=== PATIENT | female | born 1995 | race American Indian/Alaskan Native ===

== ENCOUNTER 2020-06-10 16:21 | Emergency (ER) | payer SELFPAY ==
[2020-06-10 17:31] LABS: Basophils % (Auto) 0.5 % (0.0-1.8); Eosinophils # (Auto) 0.1 K/mm3 (0.0-0.4); Eosinophils % (Auto) 1.8 % (0.0-4.3); Hemoglobin 12.3 gm/dl (10.1-14.3); Lymphocytes % (Auto) 25.6 % (13.4-35.0); Mean Corpuscular HGB Conc 33 % (30-34); Mean Corpuscular Volume 72 fl (79-97); Monocytes # (Auto) 0.6 K/mm3 (0.0-0.8); Monocytes % (Auto) 7.7 % (0.0-7.3); Platelet Count 271 K/mm3 (140-440); Red Cell Distribution Width 15.1 % (13.2-15.2)
[2020-06-10 18:04] LABS: Bilirubin,Urine NEG (Negative); Blood,Urine SM (Negative); Color,Urine Yellow (Yellow); Protein,Urine <15 mg/dL mg/dL (Negative); Urobilinogen,Urine < 2.0 mg/dL (<2.0)
[2020-06-10 18:49] VITALS: BP 103/66
--- NOTE | 2020-06-10 20:03 | Emergency Department Report ---
ED Female HPI - General Chief complaint: Vaginal Bleeding Stated complaint: ABD PAIN Source: patient Mode of arrival: Ambulatory Limitations: No Limitations - History of Present Illness Initial comments: Patient 25-year-old -[place] female who presents for pelvic pain times x1 week. Patient denies vaginal discharge no concern for STI, no dysuria frequency or urgency. Patient does endorse abnormal menses for past month. Patient denies control. Patient states attempting to get . There is been no fever, chills, nausea or vomiting. There are no other exacerbating or relieving factors. MD Complaint: vaginal bleeding - Related Data Previous Rx's Medication Instructions Recorded Last Taken Type Nitrofurantoin Daggett/M-Cryst 100 mg PO BID 7 Days #14 capsule 06/10/20 Unknown Rx [Macrobid CAP] Allergies Allergy/AdvReac Type Severity Reaction Status Date / Time No Known Allergies Allergy Verified 06/10/20 16:57 ED Review of Systems ROS: Stated complaint: ABD PAIN Other details as noted in HPI Constitutional: denies: chills, fever Eyes: denies: eye pain, eye discharge, vision change ENT: denies: ear pain, throat pain Respiratory: denies: cough, shortness of breath, wheezing Cardiovascular: denies: chest pain, palpitations Endocrine: no symptoms reported Gastrointestinal: as per HPI, abdominal pain (bilat lower abd superpubic ). denies: nausea, vomiting Genitourinary: denies: urgency, dysuria, frequency, hematuria, discharge, dyspareunia Musculoskeletal: back pain (bilat flank ). denies: joint swelling, arthralgia Skin: denies: rash, lesions Neurological: denies: headache, weakness, paresthesias Psychiatric: denies: anxiety, depression Hematological/Lymphatic: denies: easy bleeding, easy bruising ED Past Medical Hx - Past Medical History Previous Medical History?: No - Surgical History Additional Surgical History: R inguinal hernia repair - Social History Smoking Status: Never Smoker Substance Use Type: None - Medications Home Medications: Home Medications Medication Instructions Recorded Confirmed Last Taken Type Nitrofurantoin [place]gett/M-Cryst 100 mg PO BID 7 Days #14 capsule 06/10/20 Unknown Rx [Macrobid CAP] ED Physical Exam - General Limitations: No Limitations General appearance: alert, in no apparent distress - Head Head exam: Present: atraumatic, normocephalic - Eye Eye exam: Present: normal appearance - ENT ENT exam: Present: mucous membranes moist - Neck Neck exam: Present: normal inspection - Respiratory Respiratory exam: Present: normal lung sounds bilaterally. Absent: respiratory distress - Cardiovascular Cardiovascular Exam: Present: regular rate, normal rhythm, bradycardia - GI/Abdominal GI/Abdominal exam: Present: soft, normal bowel sounds. Absent: distended, tenderness, guarding, rebound, rigid, bruit, hernia - Rectal Rectal exam: Present: deferred - External exam: Present: other (deferred per patient ) - Extremities Exam Extremities exam: Present: normal inspection, full ROM - Back Exam Back exam: Present: normal inspection, full ROM. Absent: tenderness, CVA tenderness (R), CVA tenderness (L) - Neurological Exam Neurological exam: Present: alert, oriented X3, normal gait - Psychiatric Psychiatric exam: Present: normal affect, normal mood - Skin Skin exam: Present: warm, dry, intact, normal color. Absent: rash ED Course Vital Signs 06/10/20 16:56 Temperature 98.6 F Pulse Rate 77 Respiratory 16 Rate Blood Pressure 103/66 O2 Sat by Pulse 100 Oximetry ED Medical Decision Making - Lab Data Result diagrams: 06/10/20 17:13 Labs 06/10/20 06/10/20 06/10/20 17:13 17:13 17:13 WBC 7.6 RBC 5.30 H Hgb 12.3 Hct 38.0 MCV 72 L MCH 23 L MCHC 33 RDW 15.1 Plt Count 271 Lymph % (Auto) 25.6 Daggett % (Auto) 7.7 H Eos % (Auto) 1.8 Baso % (Auto) 0.5 Lymph # (Auto) 2.0 Daggett # (Auto) 0.6 Eos # (Auto) 0.1 Baso # (Auto) 0.0 Seg Neutrophils % 64.4 Seg Neutrophils # 4.9 HCG, Qual Negative HCG, Quant < 2 Urine Color Urine Turbidity Urine pH Ur Specific [place] Urine Protein Urine Glucose (UA) Urine Ketones Urine Blood Urine Nitrite Urine Bilirubin Urine Urobilinogen Ur Leukocyte Esterase Urine WBC (Auto) Urine RBC (Auto) U Epithel Cells (Auto) 06/10/20 17:35 WBC RBC Hgb Hct MCV MCH MCHC RDW Plt Count Lymph % (Auto) Daggett % (Auto) Eos % (Auto) Baso % (Auto) Lymph # (Auto) [place] # (Auto) Eos # (Auto) Baso # (Auto) Seg Neutrophils % Seg Neutrophils # HCG, Qual HCG, Quant Urine Color Yellow Urine Turbidity Clear Urine pH 6.0 Ur Specific [place] 1.018 Urine Protein <15 mg/dl Urine Glucose (UA) Neg Urine Ketones Neg Urine Blood Sm Urine Nitrite Neg Urine Bilirubin Neg Urine Urobilinogen < 2.0 Ur Leukocyte Esterase Mod Urine WBC (Auto) 8.0 H Urine RBC (Auto) 3.0 U Epithel Cells (Auto) 2.0 - Medical Decision Making Urine noted for leukocytes bacteria. We will treat for UTI. Patient will follow-up with [facility] in 2 to 3 days. Patient verbalized agreement and understanding discharge plan. Patient will be DC'd home in stable condition at this time.. Critical care attestation.: If time is entered above; I have spent that time in minutes in the direct care of this critically ill patient, excluding procedure time. ED Disposition Clinical Impression: UTI (urinary tract infection) Qualifiers: Urinary tract infection type: acute cystitis Hematuria presence: without hematuria Qualified Code(s): N30.00 - Acute cystitis without hematuria Disposition: DC-01 TO HOME OR SELFCARE Is pt being admited?: No Does the pt Need Aspirin: No Condition: Stable Instructions: Urinary Tract Infection, Adult Prescriptions: Nitrofurantoin [place]/M-Cryst [Macrobid CAP] 100 mg PO BID 7 Days #14 capsule Referrals: CALVIN PATEL MD [Staff Physician] - 3-5 Days Forms: Work/School Release Form(ED) Time of Disposition: 20:04
== END 2020-06-10 23:00 | disposition home or self-care (01) ==
LOC: ED 16:21
DX: N39.0 Urinary tract infection, site not specified (principal); Z79.899 Other long term (current) drug therapy
CPT/HCPCS: 36415; 81001; 84702; 84703; 85025; 86900; 86901; 99283

== ENCOUNTER 2020-06-13 19:35 | Emergency (ER) | payer SELFPAY | END 2020-06-13 19:45 | disposition left against medical advice (07) | LOC: ED 19:35 ==